=== PATIENT | female | born 1995 | race Caucasian/White ===

== ENCOUNTER 2024-08-03 13:34 | Emergency (ER) | payer MEDICAID ==
[~2024-08-03] VITALS: Ht 162.6 cm; Wt 95.3 kg
[2024-08-03 13:49] VITALS: O2SAT 99
[2024-08-03] MEDS: KETOROLAC 30MG/ML VIAL IM ONE (18:19)
[2024-08-03] MEDS: METHOCARBAMOL 500MG TABLET PO ONE (18:19)
[2024-08-03 18:23] LABS: CLARITY URINE CLEAR (CLEAR); COLOR URINE YELLOW (YELLOW); GLUCOSE URINE NEGATIVE (NEGATIVE); KETONES URINE TRACE (NEGATIVE); LEUKOCYTE ESTERASE URINE NEGATIVE (NEGATIVE); NITRITE URINE NEGATIVE (NEGATIVE); OCCULT BLOOD URINE NEGATIVE (NEGATIVE); PH URINE 5.5 (4.5-8.0); PROTEIN URINE NEGATIVE (NEGATIVE); SPECIFIC GRAVITY URINE 1.027 (1.005-1.030)
[2024-08-03] MEDS ORDERED: METH-653 MT (18:35)
[2024-08-03] MEDS ORDERED: LIDO700A30 TP (18:35)
[2024-08-03 18:42] VITALS: BP 144/86; PULSE 81; RESP 18; TEMP 37.00296; O2SAT 99
== END 2024-08-03 18:42 | disposition home or self-care (01) ==
LOC: ER 13:34
DX: S29.012A Strain of muscle and tendon of back wall of thorax, initial encounter (principal); S33.5XXA Sprain of ligaments of lumbar spine, initial encounter; S39.012A Strain of muscle, fascia and tendon of lower back, initial encounter; Z98.890 Other specified postprocedural states; X58.XXXA Exposure to other specified factors, initial encounter; Y93.89 Activity, other specified; Y92.89 Other specified places as the place of occurrence of the external cause; Y99.8 Other external cause status
CPT/HCPCS: 99284; 71046; 81003; 81025; 96372; J1885